=== PATIENT | female | born 1985 | race Caucasian/White ===

== ENCOUNTER 2017-02-06 09:17 | Day surgery (SDC) | payer BC ==
[2017-02-06 09:53] LABS: Hematocrit 36 % (35-47); Hemoglobin 11.9 g/dl (12.0-16.0); Mean Corpuscular HGB Conc 33 g/dl (31-36); Mean Corpuscular Hemoglobin 28 pg (27-31); Mean Corpuscular Volume 85 fL (80-97); Mean Platelet Volume 9 um3 (7.4-10.4); Red Blood Count 4.23 10^6/ul (4.0-5.4); Red Cell Distribution Width 13 % (10.5-15); White Blood Count 14.6 10^3/ul (3.5-10.8)
[2017-02-06 09:58] LABS: Urine Bacteria Absent (Absent); Urine Bilirubin Negative (Negative); Urine Glucose Negative (Negative); Urine Nitrite Negative (Negative)
[2017-02-06 10:13] LABS: ALT 26 U/L (7-52); AST 16 U/L (13-39); Albumin 3.7 g/dL (3.2-5.2); Alkaline Phosphatase 43 U/L (34-104); Anion Gap 6 mmol/L (2-11); BUN/Creatinine Ratio 13.3 (8-20); Blood Urea Nitrogen 10 mg/dL (6-24); CO2 Carbon Dioxide 26 mmol/L (22-32); Calcium 9.3 mg/dL (8.6-10.3); Chloride 104 mmol/L (101-111); EGFR African American 117.5 (>60); EGFR Non-African American 91.4 (>60); Globulin 3.4 g/dL (2-4); Glucose 98 mg/dL (70-100); Lipase 14 U/L (11.0-82.0); Potassium 3.7 mmol/L (3.5-5.0); Sodium 136 mmol/L (133-145); Total Protein 7.1 g/dL (6.4-8.9)
--- NOTE | 2017-02-06 10:22 | RAD ---
INDICATION: Right upper quadrant pain COMPARISON: None TECHNIQUE: Longitudinal and transverse scans of the right upper quadrant were obtained. Doppler interrogation of the hepatic and portal venous system was performed. FINDINGS: Liver: The liver is normal in size and echogenicity. There are no focal masses. The liver measures 17.9 cm in cephalocaudal dimension. Vessels: There is normal hepatic and portal venous flow. Bile ducts: There is no evidence of intrahepatic or extrahepatic ductal dilatation. The common duct measures 0.2 cm. Gallbladder: There are multiple gallstones. One gallstone may be in the neck. There is no evidence of cholelithiasis, thickening of the gallbladder wall, or pericholecystic fluid. Pancreas: The visualized pancreas appears normal Right kidney: The right kidney is normal in size and echogenicity. There are no masses or calculi. There is no evidence of hydronephrosis. The right kidney measures 11.6 x 4.4 x 7.3 cm. IVC and aorta: The aorta and superior vena cava appear normal. Fluid: There is no ascites. Other: None. IMPRESSION: CHOLELITHIASIS.
--- NOTE | 2017-02-06 10:52 | ED ---
Abdominal Pain/Female - HPI Summary HPI Summary: Pt here w/ RUQ ab pain which wraps around to her side and back on Rt last night 1-2 hours after eating. Denies fever, chills, N/V/D. Drank lots of water last night in an effort to flush out known gallstones. Pt reports she's had gallstones since her teens but never did anything about it. Pain subsided for 5- 6 years but then started to occur again, intermittently. Over the past 2 months , she's had increasing frequency, reporting "20 times in past 2 months...sometimes multiple times a week". She reports pain is not always linked with specific foods. Has not tried medication to break up stones, prevent occurrence as she admits to not following up with specialists as advised over the years. Has had associated constipation since "attack" - moved bowels this morning, but smaller than usual for her. Pain is currently 4/10 and she declines pain medication at this time. PMH/Surg hx: , 1 vaginal delivery, 1 - no complications Fam hx: Father w/ cholecystitis requiring open surgical removal d/t advanced state of disease - no h/o DM - History of Current Complaint Chief Complaint: EDAbdPain Stated Complaint: ABD PAIN Time Seen by Provider: 02/06/17 09:26 Hx Obtained From: Patient, Family/Hand Thermal Cutter - Pain Intensity: 4 Allergies/Adverse Reactions: Allergies Allergy/AdvReac Type Severity Reaction Status Date / Time No Known Allergies Allergy Verified 10/05/15 08:35 PMH/Surg Hx/FS Hx/Imm Hx Previously Healthy: Yes Endocrine/Hematology History: Denies: Hx Anticoagulant Therapy, Hx Blood Disorders, Hx Blood Transfusions, Hx Diabetes, Hx Anemia, Hx Unexplained Bleeding, Hx Coagulopothy, Autoimmune Disease Cardiovascular History: Denies: Hx Hypertension, Hx Myocardial Infarction Respiratory History: Denies: Hx Asthma GI History: Reports: Hx Gall Bladder Disease - cholelithiasis since teens, Hx Gastrointestinal Bleed - lower d/t polyps s/p colonosopy investigation - bleeding ceased s/p excisi Denies: Hx Gastroesophageal Reflux Disease History: Denies: Hx Kidney Infection, Hx Kidney Stones, Other Problems/Disorders - no known h/o ovarian or uterine pathology Musculoskeletal History: Denies: Hx Gout Sensory History: Reports: Hx Contacts or Glasses Opthamlomology History: Reports: Hx Contacts or Glasses - Surgical History Surgery Procedure, Year, and Place: Infectious Disease History: No Infectious Disease History: Denies: Hx Hepatitis, Hx Human Immunodeficiency Virus (HIV), Hx of Known/ Suspected MRSA, Traveled Outside the [place] in Last 30 Days - Family History Known Family History: Positive: Other - father gallbladder dz - Social History Occupation: Employed Full-time - [employer] Lives: With Family Alcohol Use: Occasionally Hx Substance Use: No Substance Use Type: Reports: None Hx Tobacco Use: No Smoking Status (MU): Never Smoked Tobacco Review of Systems Constitutional: Negative Negative: Fever, Chills, Fatigue Eyes: Negative ENT: Negative Cardiovascular: Negative Negative: Chest Pain Respiratory: Negative Negative: Shortness Of Breath Gastrointestinal: Other - see HPI Negative: burning, dysuria, discharge, frequency, flank pain Musculoskeletal: Negative Skin: Negative Neurological: Negative Negative: Headache Psychological: Normal All Other Systems Reviewed And Are Negative: Yes Physical Exam Triage Information Reviewed: Yes Vital Signs On Initial Exam: Initial Vitals Temp Pulse Resp BP Pulse Ox 98.6 F 72 16 119/69 99 02/06/17 09:18 02/06/17 09:18 02/06/17 09:18 02/06/17 09:18 02/06/17 09:18 Vital Signs Reviewed: Yes Appearance: Positive: Well-Appearing, No Pain Distress - at rest, Obese Skin: Positive: Warm, Dry - no ecchymosis Head/Face: Positive: Normal Head/Face Inspection Eyes: Positive: Normal, EOMI, Conjunctiva Clear - anicteric sclera ENT: Positive: Hearing grossly normal, Pharynx normal - mucosa moist and pink Neck: Positive: Supple, Nontender Respiratory/Lung Sounds: Positive: Clear to Auscultation, Breath Sounds Present. Negative: Rales, Rhonchi, Wheezes Cardiovascular: Positive: Normal, RRR, S1, S2. Negative: Murmur, Rub, Leg Edema Left, Leg Edema Right Abdomen Description: Positive: Soft, Other: - TTP over RUQ - no rebounding - all other areas of ab are NTTP. Negative: CVA Tenderness (R), CVA Tenderness (L ), Distended Bowel Sounds: Positive: Hypoactive Pelvic Exam: Positive: other - deferred - pt denies vaginal sx Musculoskeletal: Positive: Normal, Strength/ROM Intact Neurological: Positive: Normal, Sensory/Motor Intact, Alert, Oriented to Person Place, Time, CN Intact II-III Psychiatric: Positive: Normal - calm, pleasant Diagnostics - Vital Signs Vital Signs Temp Pulse Resp BP Pulse Ox 02/06/17 09:18 98.6 F 72 16 119/69 99 - Laboratory Lab Results: Lab Results 02/06/17 02/06/17 02/06/17 Range/Units 09:45 09:45 09:45 WBC 14.6 H (3.5-10.8) 10^3/ul RBC 4.23 (4.0-5.4) 10^6/ul Hgb 11.9 L (12.0-16.0) g/dl Hct 36 (35-47) % MCV 85 (80-97) fL MCH 28 (27-31) pg MCHC 33 (31-36) g/dl RDW 13 (10.5-15) % Plt Count 212 (150-450) 10^3/ul MPV 9 (7.4-10.4) um3 Neut % (Auto) 70.1 (38-83) % Lymph % (Auto) 23.1 L (25-47) % Flagler % (Auto) 6.0 (1-9) % Eos % (Auto) 0.5 (0-6) % Baso % (Auto) 0.3 (0-2) % Absolute Neuts (auto) 10.2 H (1.5-7.7) 10^3/ul Absolute Lymphs (auto) 3.4 (1.0-4.8) 10^3/ul Absolute Monos (auto) 0.9 H (0-0.8) 10^3/ul Absolute Eos (auto) 0.1 (0-0.6) 10^3/ul Absolute Basos (auto) 0 (0-0.2) 10^3/ul Absolute Nucleated RBC 0.01 10^3/ul Nucleated RBC % 0 Sodium 136 (133-145) mmol/L Potassium 3.7 (3.5-5.0) mmol/L Chloride 104 (101-111) mmol/L Carbon Dioxide 26 (22-32) mmol/L Anion Gap 6 (2-11) mmol/L BUN 10 (6-24) mg/dL Creatinine 0.75 (0.51-0.95) mg/dL Est GFR ( Amer) 117.5 (>60) Est GFR (Non-Af Amer) 91.4 (>60) BUN/Creatinine Ratio 13.3 (8-20) Glucose 98 (70-100) mg/dL Lactic Acid 1.3 (0.5-2.0) mmol/L Calcium 9.3 (8.6-10.3) mg/dL Total Bilirubin 0.70 (0.2-1.0) mg/dL AST 16 (13-39) U/L ALT 26 (7-52) U/L Alkaline Phosphatase 43 (34-104) U/L C-Reactive Protein 6.70 H (< 5.00) mg/L Total Protein 7.1 (6.4-8.9) g/dL Albumin 3.7 (3.2-5.2) g/dL Globulin 3.4 (2-4) g/dL Albumin/Globulin Ratio 1.1 (1-3) Lipase 14 (11.0-82.0) U/L Beta HCG, Quant < 0.60 mIU/mL Urine Color Urine Appearance Urine pH (5-9) Ur Specific Addison (1.010-1.030) Urine Protein (Negative) Urine Ketones (Negative) Urine Blood (Negative) Urine Nitrate (Negative) Urine Bilirubin (Negative) Urine Urobilinogen (Negative) Ur Leukocyte Esterase (Negative) Urine WBC (Auto) (Absent) Urine RBC (Auto) (Absent) Ur Squamous Epith Cells (Absent) Urine Bacteria (Absent) Urine Glucose (Negative) 02/06/17 Range/Units 09:45 WBC (3.5-10.8) 10^3/ul RBC (4.0-5.4) 10^6/ul Hgb (12.0-16.0) g/dl Hct (35-47) % MCV (80-97) fL MCH (27-31) pg MCHC (31-36) g/dl RDW (10.5-15) % Plt Count (150-450) 10^3/ul MPV (7.4-10.4) um3 Neut % (Auto) (38-83) % Lymph % (Auto) (25-47) % Flagler % (Auto) (1-9) % Eos % (Auto) (0-6) % Baso % (Auto) (0-2) % Absolute Neuts (auto) (1.5-7.7) 10^3/ul Absolute Lymphs (auto) (1.0-4.8) 10^3/ul Absolute Monos (auto) (0-0.8) 10^3/ul Absolute Eos (auto) (0-0.6) 10^3/ul Absolute Basos (auto) (0-0.2) 10^3/ul Absolute Nucleated RBC 10^3/ul Nucleated RBC % Sodium (133-145) mmol/L Potassium (3.5-5.0) mmol/L Chloride (101-111) mmol/L Carbon Dioxide (22-32) mmol/L Anion Gap (2-11) mmol/L BUN (6-24) mg/dL Creatinine (0.51-0.95) mg/dL Est GFR ( Amer) (>60) Est GFR (Non-Af Amer) (>60) BUN/Creatinine Ratio (8-20) Glucose (70-100) mg/dL Lactic Acid (0.5-2.0) mmol/L Calcium (8.6-10.3) mg/dL Total Bilirubin (0.2-1.0) mg/dL AST (13-39) U/L ALT (7-52) U/L Alkaline Phosphatase (34-104) U/L C-Reactive Protein (< 5.00) mg/L Total Protein (6.4-8.9) g/dL Albumin (3.2-5.2) g/dL Globulin (2-4) g/dL Albumin/Globulin Ratio (1-3) Lipase (11.0-82.0) U/L Beta HCG, Quant mIU/mL Urine Color Straw Urine Appearance Clear Urine pH 7.0 (5-9) Ur Specific Addison 1.003 L (1.010-1.030) Urine Protein Negative (Negative) Urine Ketones Negative (Negative) Urine Blood 3+ H (Negative) Urine Nitrate Negative (Negative) Urine Bilirubin Negative (Negative) Urine Urobilinogen Negative (Negative) Ur Leukocyte Esterase Negative (Negative) Urine WBC (Auto) Trace(0-5/hpf) (Absent) Urine RBC (Auto) 2+(6-10/hpf) H (Absent) Ur Squamous Epith Cells Present H (Absent) Urine Bacteria Absent (Absent) Urine Glucose Negative (Negative) Result Diagrams: 02/06/17 09:45 02/06/17 09:45 Lab Statement: Any lab studies that have been ordered have been reviewed, and results considered in the medical decision making process. Abdominal Pain Fem Course/Dx - Course Course Of Treatment: Pt presents w/ RUQ pain comparable to that she's had many times before with "gallbladder attacks". She has not followed up for care of this but is here today as "attacks" are more frequent over past 2 months and she 'd like to see what her options are. WBC 14.6, Ab neut 10.2, CRP 6.7. LFT's, electrolytes, lipase and lactic acid WNL. Urine blood +3, RBC + 2, Spec gravity 1.003, squamos cells present. Denies dysuria, frequency, flank pain, vaginal pain or discomfort - pt left ED before could inquire about mentrual cycle - if she's on it now, could be cause of findings in blood. Hcg serum (-) . No clinical cardiopulm risk factors. Also spec gravity being low correlates w/ pt reporting drinking H20 all night. Discussed w/ Dr. Schultz who evaluated pt. To be admitted for surgery today. - Diagnoses Provider Diagnoses: Cholelithiasis - Provider Notifications Discussed Care Of Patient With: Messi Schultz Discharge - Discharge Plan Condition: Stable Disposition: ADMITTED TO [facility] Referrals: Josee Lee MD [Primary Care Provider] -
--- NOTE | 2017-02-06 11:39 | HP ---
CC: Dr. Josee Lee DATE OF ADMISSION: 02/06/2017. The patient was seen in the emergency room. HISTORY OF PRESENT ILLNESS: I was contacted by the emergency room staff to evaluate Ms. Redmond, a 31-year-old, otherwise healthy female who presents to [facility] Emergency Room with complaints of acute onset of epigastric pain radiating to the back starting last night. The patient has now been reveal ed with narcotics. The patient describes having frequent bouts of what she says is biliary colic. She has been told she has had gallstones since her teenage years. She has been afraid to undergo ga llbladder surgery. She keeps a very busy schedule and raises two children. Her convinced er to come into the hospital. The patient describes previous symptoms of biliary colic starting approximately ten years ago; howev er, within the past eight months, they have become much more frequent, occurring almost on a weekly basis. The patient usually works through these. She describes loose bowel movements and denies any nausea or vomiting, no fevers or chills. She denies any anorexia and indeed has gained approximate ly ten pounds over the course of the last year. PAST MEDICAL HISTORY: None. PAST SURGICAL HISTORY: . MEDICATIONS: None. ALLERGIES: No known drug allergies. FAMILY HISTORY: Biliary disease and obesity in her father who recently underwent a laparoscopic con verted to open cholecystectomy while on vacation in [place], requiring approximately seven days of h ospitalization. No history of diabetes. No history of pancreatic or biliary cancers. SOCIAL HISTORY: She does not smoke or drink or use IV drugs. She is , lives with her two [facility] and her . 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 REVIEW OF SYSTEMS: No fevers, no chills, no headaches, no visual disturbances, no shortness of ricky th or chest pain. Abdominal complaints as described. No jaundice type symptoms. No dysuria or renan k colored urine. No light colored stools; loose bowel movements. The patient did undergo a colonos copy approximately a year ago with Dr. Pedro for bleeding and underwent Removal of a premalignant polyp and the bleeding stopped. The patient denies any other bleeding or clotting disorders. Weigh t gain as described above. No endocrine disorders. PHYSICAL EXAMINATION GENERAL: Alert and oriented times three, in no apparent distress. VITAL SIGNS: She is afebrile. Blood pressure 119/69, heart rate 72. HEENT: Normocephalic, atraumatic. Sclerae anicteric. Mucus membranes are moist. NECK: No lymphadenopathy. LUNGS: Clear to auscultation bilaterally. ABDOMEN: Soft, obese, minimally tender on deep palpation in the epigastrium. Negative Gutierrez sign. No CVA tenderness. No masses or hernias noted. EXTREMITIES: Within normal limits with no pitting edema or cyanosis. RECTAL: Exam not performed. LABORATORY DATA: The patient underwent labs which show a white count of 14.6 with no left shift. Hemoglobin is 11.9 which is low with reference range 12 to 16. Chemistry panel reviewed and shows mi ldly elevated CRP, but normal LFT's, including lipase level. The patient underwent a urinalysis whi ch showed blood, but no nitrates. The patient also has a negative beta HCG. The patient underwent an ultrasound of the gallbladder. Report states gallstones without common lyly e duct stone or dilatation. The common bile duct measures 0.2. There is no pericholecystic fluid, b ut there is a gallstone at the neck of the gallbladder. IMPRESSION: Cholecystitis in a patient with an elevated white count, gallbladder stone in the neck who I believe would benefit from laparoscopic cholecystectomy. I outlined the details of the proced ure, going over the risks, benefits and alternatives and the patient wishes to proceed. We spoke of the possible complications which include but were not limited to bleeding, infection, bile leak, co mmon bile duct injury or retained common bile stones, need for open procedure, need for additional p rocedures. The patient will receive preoperative antibiotics. PLAN: Same day surgery with planned discharge today. I outlined the possibility of staying overnig ht if needed. The patient is NPO. She will received IV fluids and catheter needs to be placed. He r questions were answered and consent was signed. [id number]/[facility] #: [id number]
[2017-02-06] MEDS ORDERED: Bupivacaine 0.25% SDV* 30 ML ONE ×2 (11:48→13:58)
[2017-02-06] MEDS ORDERED: Midazolam* 1 MG/ML 2 ML VIAL (2 MG) ONE (11:54)
[2017-02-06] MEDS ORDERED: fentaNYL* 50 MCG/ML 2 ML VIAL (100 MCG VIAL) ONE ×3 (11:54→14:34)
[2017-02-06] MEDS ORDERED: Buffered Lidocaine 0.9% SYRIN* 5 ML/SYR SYRINGE INTRADERM ONE (12:25)
[2017-02-06] MEDS ORDERED: DiMENhydriNATE IV* 50 MG/ML VIAL IV PUSH PRN (12:26)
[2017-02-06] MEDS ORDERED: PROCHLORPERAZINE INJ 5 MG/ML 2 ML VIAL IV PRN (12:26)
[2017-02-06] MEDS ORDERED: HYDROmorphone INJ* 1 MG/ML CARPUJECT SYRINGE IV PRN (12:26)
[2017-02-06] MEDS ORDERED: Acetaminophen TAB* 325 MG PO PRN (12:26)
[2017-02-06] MEDS ORDERED: Ondansetron INJ* 2 MG/ML VIAL IV PRN (12:26)
[2017-02-06] MEDS ORDERED: ceFAZolin 2 GM PREMIX (*) 50 ML IVPB ONE (12:41)
[2017-02-06] MEDS ORDERED: Cisatracurium* 2 MG/ML MDV 5 ML ONE (13:11)
[2017-02-06] MEDS ORDERED: Bacitracin OINTMENT* 1 TUBE ONE (14:09)
--- NOTE | 2017-02-06 14:13 | SURGPN ---
Brief Operative Note - Surgery Procedures: Pre-OP Diagnoses: acute cholecystitis Post-op Diagnosis: same Procedure: Laparoscopic cholecystectomy Surgeon: Antoine Asst: Denton Anethesia: DERRICK Palma EBL: minimal IVF: 1 L LR Specimen: gallbladder Drains: none
[2017-02-06] MEDS: fentaNYL* 50 MCG/ML 2 ML VIAL (100 MCG VIAL) IV PRN ×2 (14:36→14:48)
[2017-02-06] MEDS ORDERED: HYDROmorphone INJ* 1 MG/ML CARPUJECT SYRINGE ONE (14:49)
[2017-02-06 15:43] VITALS: BP 117/67
--- NOTE | 2017-02-07 09:47 | OP ---
CC: Dr. Josee Lee; [facility] OPERATIVE REPORT: DATE OF OPERATION: 02/06/17 DATE OF : 89 SURGEON: Messi Schultz MD. CARE SPECIALIST: RENA Ford. ANESTHESIOLOGIST: Dr. Palma. ANESTHESIA: General anesthesia. PRE-OP DIAGNOSIS: Acute cholecystitis. POST-OP DIAGNOSIS: Acute cholecystitis. OPERATIVE PROCEDURE: Laparoscopic cholecystectomy. ESTIMATED BLOOD LOSS: Minimal. FLUIDS: 1 L of crystalloid fluid given. SPECIMEN: Gallbladder. DRAINS: None. COUNTS: Lap pad count and instrument count correct at the end of the procedure. DESCRIPTION OF PROCEDURE: The patient was identified in the preoperative area, brought to the OR, p laced on the operating table in supine position. Preoperative antibiotics were given. Sequential c ompression device was placed on bilateral lower extremities. General anesthesia was induced. The p atient's abdomen was prepped and draped in standard surgical fashion and a time-out was performed. Folds of the umbilicus were elevated anteriorly and a Veress needle was attempted to place into the abdominal cavity. We were not able to appropriately insufflate and attention was then turned toward s right upper quadrant. An incision was made at Valverde's point 1 to 2 fingerbreadths below the cost al margin on the right just in the mid clavicular line. This was deepened down in the anterior fasc ia and Veress was easily placed into the abdominal cavity, which was then allowed to insufflate to a pressure of 15 mmHg. Patient tolerated the insufflation well. Veress needle was removed and a 5-mm trocar inserted. Laparoscope was inserted through this and there was no evidence of injury from th e initial attempted Veress needle. Additional trocars were then placed at the umbilicus site 5 mm a nd the omentum was lifted off. We can see some gas behind the omentum to suggest that air had enter ed into the abdominal cavity. We lifted off the omentum and with bowel graspers around the small jensen wel in that exact spot, no evidence of hematoma or blood or enteric contents at all. I feel comfort able that there was no injury intra-abdominally and camera was shifted to the umbilical port site an d additional trocars were then placed in the following position: A 12-mm in the subxiphoid area and a 5 mm along the right costal margin. Table was repositioned. Gallbladder was distended and injec elijah. This was grasped and retracted above the liver. It was somewhat tense, but we were able to re tract the infundibulum, which was large down towards to the right lower quadrant. This exposed the critical view, being able to clearly see the common bile duct. We did have to use sharp dissection and free some of the colon off of the side of the lateral aspect of the gallbladder. Around at this point, the fundus of the gallbladder perforated from the grasper. We were able to reposition our g rasper. Opaque drainage was identified consistent with pus. This was suctioned off and we minimize d the spillage. The peritoneum of the lateral aspect of the gallbladder was taken with electrocautery device. The m edial aspect was similarly taken. The cystic artery was identified after bluntly dissecting the nod e of Calot posteriorly. We then doubly clipped the artery and ligated this. This is allowed to see posterior in the gallbladder well. Dissection at this site with electrocautery was done and we cou ld make a window around the back of the side of the gallbladder. There was a large stone at the inf undibular neck portion of the gallbladder. This was not mobile but we could see a healthy cystic du ct that needed to be skeletonized, but once this was, we triply clipped and ligated it and removed t he gallbladder from the liver bed, placed in an endoscopic retrieval bag. Review of the cystic duct stump, cystic artery stump showed no bleeding or no bile leak. Copious ir rigated was used. Clearing out the area of the gallbladder fossa until the effluent was clear. The re was no bleeding and no bile. The tablet was repositioned to neutral. Gallbladder was then removed through the subxiphoid port si te. We did increase the size of this to allow for us to remove the gallbladder, which was passed of f as specimen. The wound was then irrigated and the fascial layer was reapproximated with 0 Polysor b suture in a figure-of- eight fashion. Again the wound irrigated and the umbilical incision reappr oximated with 3-0 chromic suture in a simple fashion and subcuticular 4-0 Monocryl sutures at the ot her 3 incisions. Sterile dressing was applied. The patient tolerated the procedure well, was awoke n in the OR and transferred to PACU in stable condition. [id number]/[facility] #: [id number]
== END 2017-02-06 15:40 | disposition home or self-care (01) ==
LOC: ED 09:17 → OR 11:58
PROVIDERS: ATTEND Surgery
DX: K80.12 Calculus of gallbladder with acute and chronic cholecystitis without obstruction (principal); Z87.891 Personal history of nicotine dependence
CPT/HCPCS: 36415; 76705; 80053; 81003; 81015; 83605; 83690; 84702; 85025; 86140; 88304; A9270-GY; J0690; J1170; J2250; J3010

== ENCOUNTER 2017-04-07 18:18 | Emergency (ER) | payer BC ==
--- NOTE | 2017-04-07 21:07 | ED ---
Lower Extremity - HPI Summary HPI Summary: 31F presents with lump behind left leg that notice today. She has history of DVT that got because was on control and had surgery. The revised her veins and removed the clot and placed her on lovenox for 7 days. She states that the pain is 3/10. feels like rope. denies any fever or spreading redness. denies any injury. no chest pain or SOB. has not been worked up for coagulopathy. no family history of blood clots. is not on ocp. no recent travel. did have gallbladder removed last month. - History of Current Complaint Chief Complaint: EDExtremityLower Stated Complaint: BUMP ON LT LEG Time Seen by Provider: 04/07/17 20:09 Pain Intensity: 3 - Allergies/Home Medications Allergies/Adverse Reactions: Allergies Allergy/AdvReac Type Severity Reaction Status Date / Time No Known Allergies Allergy Verified 10/05/15 08:35 PMH/Surg Hx/FS Hx/Imm Hx Endocrine/Hematology History: Denies: Hx Anticoagulant Therapy, Hx Blood Disorders, Hx Blood Transfusions, Hx Diabetes, Hx Anemia, Hx Unexplained Bleeding Cardiovascular History: Denies: Hx Hypertension, Hx Myocardial Infarction Respiratory History: Denies: Hx Asthma GI History: Reports: Hx Gall Bladder Disease - cholelithiasis since teens, Hx Gastrointestinal Bleed - lower d/t polyps s/p colonosopy investigation - bleeding ceased s/p excisi Denies: Hx Gastroesophageal Reflux Disease History: Denies: Hx Kidney Infection, Hx Kidney Stones, Other Problems/Disorders - no known h/o ovarian or uterine pathology Musculoskeletal History: Denies: Hx Gout Sensory History: Reports: Hx Contacts or Glasses Opthamlomology History: Reports: Hx Contacts or Glasses - Surgical History Surgery Procedure, Year, and Place: - Immunization History Immunizations Up to Date: Yes Infectious Disease History: No Infectious Disease History: Denies: Hx Hepatitis, Hx Human Immunodeficiency Virus (HIV), Hx of Known/ Suspected MRSA, Traveled Outside the [place] in Last 30 Days - Family History Known Family History: Positive: Other - father gallbladder dz - Social History Alcohol Use: Daily Alcohol Amount: 1 whiskey at night Hx Substance Use: No Substance Use Type: Reports: None Hx Tobacco Use: No Smoking Status (MU): Never Smoked Tobacco Review of Systems Negative: Fever Negative: Chest Pain Negative: Shortness Of Breath Positive: Edema - left leg All Other Systems Reviewed And Are Negative: Yes Physical Exam Triage Information Reviewed: Yes Vital Signs On Initial Exam: Initial Vitals Temp Pulse Resp BP Pulse Ox 98.7 F 82 18 133/74 100 04/07/17 18:35 04/07/17 18:35 04/07/17 18:35 04/07/17 18:35 04/07/17 18:35 Vital Signs Reviewed: Yes Appearance: Positive: Well-Appearing Skin: Positive: Warm, Dry Head/Face: Positive: Normal Head/Face Inspection Eyes: Positive: Normal, Conjunctiva Clear Respiratory/Lung Sounds: Positive: Clear to Auscultation, Breath Sounds Present Cardiovascular: Positive: Normal, RRR Musculoskeletal: Positive: Strength/ROM Intact - left leg, Other - small area of edema that feels rope like near left knee, good pulses. Negative: Brigido Sign Left Neurological: Positive: Normal Psychiatric: Positive: Normal - [place] Coma Scale Coma Scale Total: 15 Diagnostics - Vital Signs Vital Signs Temp Pulse Resp BP Pulse Ox 04/07/17 18:35 98.7 F 82 18 133/74 100 - Laboratory Lab Statement: Any lab studies that have been ordered have been reviewed, and results considered in the medical decision making process. - Ultrasound No standard instances Ultrasound Interpretation: Positive (See Comments) - IMPRESSION: 1. No sonographic evidence of deep vein thrombosis. 2. Partial thrombus in the great saphenous vein at the level of the popliteal fossa. Ultrasound Interpretation Completed By: Radiologist Lower Extremity Course/Dx - Course Course Of Treatment: 31F presents with lump behind left leg that notice today. She has history of DVT that got because was on control and had surgery. The revised her veins and removed the clot and placed her on lovenox for 7 days. She states that the pain is 3/10. feels like rope. denies any fever or spreading redness. denies any injury. no chest pain or SOB. has not been worked up for coagulopathy. no family history of blood clots. is not on ocp. no recent travel. did have gallbladder removed last month. on exam has area of swelling near left knee that feels rope like. no erythema. u/s shows parital thrombus at great saphenous vein. will not start blood thinners at this time as not in deep circulation. will have follow up with primary and can have discussion then and further evaluate risk factors. patient understand and agrees with plan. - Diagnoses Differential Diagnosis/HQI/PQRI: Positive: DVT, Phlebitis, Sprain Provider Diagnoses: Superficial thrombophlebitis Discharge - Discharge Plan Condition: Good Disposition: HOME Patient Education Materials: Superficial Thrombophlebitis (ED) Referrals: Josee Lee MD [Primary Care Provider] - Additional Instructions: Place heat on area Take Tylenol or ibuprofen for pain Wear compression socks Follow up with primary to get tested for coagulopathy, sometimes primary will place patient on blood thinners for phlebitis if have a lot of risk factors Return to ED if develop any new or worsening symptoms
--- NOTE | 2017-04-07 21:35 | RAD ---
HISTORY: Left lower extremity pain and swelling in a patient with a history of left lower extremity great saphenous vein stripping and ablation. TECHNIQUE: Multiple transverse and longitudinal ultrasound images were obtained of the veins of the left lower extremity using grayscale, color Doppler, and spectral Doppler imaging with and without compression and with augmentation. FINDINGS: VEINS: The common femoral vein, deep femoral vein, femoral vein and popliteal vein are compressible throughout their course, with normal flow on color Doppler imaging and normal response to augmentation on spectral Doppler imaging. In the left popliteal fossa there is partial thrombus in the great saphenous vein with a horizontally oriented retail wireless associate does not show any flow. SOFT TISSUES: Grossly normal. No large popliteal fossa cyst was identified. IMPRESSION: 1. No sonographic evidence of deep vein thrombosis. 2. Partial thrombus in the great saphenous vein at the level of the popliteal fossa.
[2017-04-07 21:42] VITALS: BP 105/54
== END 2017-04-07 21:44 | disposition home or self-care (01) ==
LOC: ED 18:18
DX: I80.02 Phlebitis and thrombophlebitis of superficial vessels of left lower extremity (principal)
CPT/HCPCS: 99281

== ENCOUNTER → 2018-06-30 08:41 | Day surgery (SDC) | payer BC ==
[~2018-06-30 08:41] MED LIST: Buffered Lidocaine 1% SYRIN* 1 ML/SYRINGE INTRADERM ONE; Dexamethasone TAB* 4 MG ONE; Dexamethasone TAB* 4 MG PO ONE; DiMENhydriNATE IV* 50 MG/ML VIAL IV PUSH PRN; Famotidine IV* 10 MG/ML 2 ML (20 mg) IV ONE; Famotidine IV* 10 MG/ML 2 ML (20 mg) ONE; Lactated Ringers 1000 ML Bag* 1,000 ML IV SCH; Lidocaine 2% PF * 5 ML VIAL ONE; Midazolam* 1 MG/ML 5 ML VIAL (5 MG) ONE; Naloxone* 0.4 MG/ML 1 ML VIAL IV PRN; Ondansetron INJ* 2 MG/ML VIAL ONE; Ondansetron ODT TAB* 4 MG ONE; Ondansetron TAB* 4 MG PO ONE; Propofol* 10 MG/ML 20 ML BTL ONE; ROPIVACAINE 5 MG/ML 30 ML BTL (0.5%) ONE; Succinylcholine* 20 MG/ML 10 ML VIAL ONE; fentaNYL* 50 MCG/ML 2 ML VIAL (100 MCG VIAL) ONE; oxyCODONE/Acetamin 5/325 MG* TAB ONE; oxyCODONE/Acetamin 5/325 MG* TAB PO PRN
[2018-06-30] MEDS: fentaNYL* 50 MCG/ML 2 ML VIAL (100 MCG VIAL) IV PRN ×2 (12:15→12:26)
[2018-06-30 12:56] VITALS: BP 106/54
--- NOTE | 2018-06-30 20:16 | OP ---
DATE OF OPERATION: 06/30/18 - SDS DATE OF : 89 SURGEON: Yair Jha MD PRE-OP DIAGNOSES: Chronic tonsillitis and a papillomatous growth on the left tonsil. POST-OP DIAGNOSES: Chronic tonsillitis and a papillomatous growth on the left tonsil. OPERATIVE PROCEDURE: Tonsillectomy under general endotracheal anesthesia. COMPLICATIONS: None. DISPOSITION: Good. SPECIMENS: Left and right tonsils. I also sent a biopsy of the left tonsillar mass. ESTIMATED BLOOD LOSS: Minimum. DESCRIPTION OF PROCEDURE: The patient was taken to the operating room and placed in the supine position on the operating table. General anesthesia was induced and she was orotracheally intubated, turned and draped for the surgery. Brissa-Tylor mouth gag was inserted, retraction was applied; it was suspended from the Hobson stand. Right tonsil was grasped, manual traction was applied. Using Bovie cautery, it was dissected along its capsule, removing it from the underlying pharyngeal musculature. On the superior pole of the left tonsil, there was a papillomatous growth. I took a scissor and snipped a piece off and sent that separately to Pathology. Left tonsil was grasped, manual traction was applied. Using Bovie cautery, it was dissected along its capsule, removing it from the underlying pharyngeal musculature. Hemostasis was ensured in both tonsillar fossa using the suction cautery. Brissa-Tylor mouth gag was released, retraction again applied and hemostasis was ensured. Orogastric tube was inserted into the stomach and stomach contents suctioned. Brissa-Tylor mouth gag and red rubber catheter were released and removed. The patient tolerated this well, no complications, was transferred to the recovery room in stable condition. [id number]/[facility] #: [id number] [facility]
== END | disposition home or self-care (01) ==
LOC: OR 08:41
PROVIDERS: ATTEND Otolaryngology
DX: J35.01 Chronic tonsillitis (principal); D10.4 Benign neoplasm of tonsil; R91.1 Solitary pulmonary nodule; Z87.891 Personal history of nicotine dependence
CPT/HCPCS: 81025; 88304; 88305; A9270-GY; J0330; J2250; J2405; J2704; J2795; J3010; J8540

== ENCOUNTER 2018-07-05 17:26 | Day surgery (SDC) | payer BC ==
[2018-07-05] MEDS ORDERED: Tranexamic Acid 1,000 MG/10 ML SDV TOPICAL ONE (17:34)
--- NOTE | 2018-07-05 17:47 | ED ---
Throat Pain/Nasal Congestion - HPI Summary HPI Summary: Pt is a 33 y/o female brought in by EMS who presents to the ED c/o pharyngeal bleeding. She had a tonsillectomy performed by Dr. Jha 5 days ago and has been taking Ibuprofen and Oxycodone for the pain. At 16:00 today she began to bleed from the surgical wound, and she is spitting up large clots of blood. Pt denies any pain to the area. She denies taking any blood thinners. Pt is a former smoker. - History of Current Complaint Hx Obtained From: Patient Onset/Duration: Sudden Onset, Lasting Hours - 16:00, Still Present Associated Signs And Symptoms: Positive: Negative Cough: None Related History: Prior ENT Surgery - tonsillectomy 5 days ago - Allergies/Home Medications Allergies/Adverse Reactions: Allergies Allergy/AdvReac Type Severity Reaction Status Date / Time No Known Allergies Allergy Verified 07/05/18 17:29 PMH/Surg Hx/FS Hx/Imm Hx Endocrine/Hematology History: Denies: Hx Anticoagulant Therapy, Hx Blood Disorders, Hx Blood Transfusions, Hx Diabetes, Hx Anemia, Hx Unexplained Bleeding Cardiovascular History: Reports: Other Cardiovascular Problems/Disorders - BLOOD CLOT TO THE LEFT AFTER VARICOSE VEIN SURGERY Denies: Hx Hypertension, Hx Myocardial Infarction, Hx Pacemaker/ICD Respiratory History: Reports: Other Respiratory Problems/Disorders - 2 SMALL NODULES ON LUNGS REPORTS PRESENT SINCE AGE 20- FOLLOWED BY PMD- Denies: Hx Asthma GI History: Reports: Hx Gall Bladder Disease - cholelithiasis since teens, Hx Gastrointestinal Bleed - lower d/t polyps s/p colonosopy investigation - bleeding ceased s/p excisi , Other GI Disorders - PRECANCEROUS POLYPS REMOVED 1- 2 YEARS AGO Denies: Hx Gastroesophageal Reflux Disease History: Reports: Other Problems/Disorders - H/O NEPHRITIS- POST STREP THROAT- REPORTS CLEARED WITH ANTIBIOTICS Denies: Hx Kidney Infection, Hx Kidney Stones Musculoskeletal History: Denies: Hx Gout Sensory History: Reports: Hx Contacts or Glasses - GLASSES Denies: Hx Hearing Aid Opthamlomology History: Reports: Hx Contacts or Glasses - GLASSES Neurological History: Reports: Hx Migraine - NOTED ONLY WHEN DEHYDRATED-OCULAR Psychiatric History: Reports: Hx Anxiety - VERY NERVOUS ABOUT UPCOMING PROCEDURE - Surgical History Surgery Procedure, Year, and Place: [id number]. 2018-GALLBLADDER REMOVED. VARICOSE VEIN - LEFT LEG- X 2- [facility]. TONSILLECTOMY 2019 Hx Anesthesia Reactions: No Infectious Disease History: No Infectious Disease History: Denies: Hx Hepatitis, Hx Human Immunodeficiency Virus (HIV), Hx of Known/ Suspected MRSA, Traveled Outside the US in Last 30 Days - Family History Known Family History: Positive: Other - father gallbladder dz - Social History Alcohol Use: None Alcohol Amount: 1 whiskey at night Hx Substance Use: No Substance Use Type: Reports: None Hx Tobacco Use: Yes Smoking Status (MU): Former Smoker Amount Used/How Often: 1/2 PPD X OFF AND ON 7 YEARS TOTAL Have You Smoked in the Last Year: No Review of Systems Negative: Fever Positive: Other - bleeding from tonsillectomy scar. Negative: Sore Throat All Other Systems Reviewed And Are Negative: Yes Physical Exam - Summary Physical Exam Summary: Appearance: Well appearing, no pain distress Skin: warm, dry, reflects adequate perfusion Head/face: normal Eyes: EOMI, MICHELLE ENT: mucous membranes moist, active bleeding and small clots on right tonsillar pillar, eschar is intact on the left Neck: supple, non-tender Respiratory: CTA, breath sounds present Cardiovascular: RRR, pulses symmetrical Abdomen: non-tender, soft Bowel Sounds: present Musculoskeletal: normal, strength/ROM intact Neuro: normal, sensory motor intact, A&Ox3 Triage Information Reviewed: Yes Vital Signs On Initial Exam: Initial Vitals Temp Pulse Resp BP Pulse Ox 98.7 F 100 17 126/79 100 07/05/18 17:29 07/05/18 17:29 07/05/18 17:29 07/05/18 17:29 07/05/18 17:29 Vital Signs Reviewed: Yes Diagnostics - Vital Signs Vital Signs Temp Pulse Resp BP Pulse Ox 07/05/18 17:29 98.7 F 100 17 126/79 100 - Laboratory Result Diagrams: 07/05/18 17:40 07/05/18 17:40 Lab Statement: Any lab studies that have been ordered have been reviewed, and results considered in the medical decision making process. Re-Evaluation - Re-Evaluation First Eval Re-Evaluation Time: 17:50 Change: Improved Comment: Bleeding has now stopped, and there is an intact clot. EENT Course/Dx - Course Course Of Treatment: Nurse's notes reviewed. Patient with post-tonsillectomy bleeding. She was given ice water gargles and follow this will by nebulized TXA. This stabilized a clot on the right tonsillar pillar. The ENT surgeon came in and will take to the OR for definitive care. - Diagnoses Provider Diagnoses: Post-tonsillectomy hemorrhage - Provider Notifications Discussed Care Of Patient With: Alek Jha Time Discussed With Above Provider: 17:00 Instructed by Provider To: Other - Dr. Jha informed us his pt was coming to the ED prior to her arrival. He will come to the ED. Dr. Jha arrived to the ED at 17:55 and is going to bring the pt to the OR. Discharge - Sign-Out/Discharge Documenting (check all that apply): Patient Departure - Admit Patient Received Moderate/Deep Sedation with Procedure: No - Discharge Plan Condition: Stable Disposition: ADMITTED TO [facility] - Billing Disposition and Condition Condition: STABLE Disposition: Admitted to [facility] - Attestation Statements Document Initiated by Jeremyibe: Yes Documenting Scribe: Aliya Walker Provider For Whom Deedee is Documenting (Include Credential): Benny Alcala MD Scribe Attestation: Aliya Black, scribed for Benny Alcala MD on 07/05/18 at 1835. Scribe Documentation Reviewed: Yes Provider Attestation: The documentation as recorded by the Aliya mcgarry accurately reflects the service I personally performed and the decisions made by Benny de la rosa MD Status of Scribe Document: Viewed
--- OUTSIDE RECORDS SUMMARY | 2018-07-05 17:52 | XMS REPORT | Continuity of Care Document ---
:1985 External Reference #:[id number] Author Name Alek Jha M.D. Address [address] [place] [address] Care Team Providers Name Role Phone Olesya Ramos N.P. Care Team Information Manager Mall Unavailable Wolf Monk M.D. Primary Care Physician Unavailable Payers Type Date Identification Numbers Payment Provider Subscriber Effective: Policy Number: [facility] Nena Redmond 2018 [id number] [facility] PayID: 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 [employer] Tobacco Use Start: Unknown End: Former Cigarette Smoker Unknown Tobacco Use Start: Unknown Never Smoked Cigars Tobacco Use Start: Unknown Never Smoked A Pipe Smokeless Tobacco Never Used Smokeless Tobacco ETOH Use Currently rarely consumes alcohol Tobacco Use Start: Unknown End: Patient is a former Unknown smoker Smoking Status Reviewed: 06/08/18 Patient is a former smoker Allergies, Adverse Reactions, Alerts Description No Known Drug Allergies Medications Medication Date Status Form Strength Qnty SIG Indications Ordering Provider Oxycodone HCL 06/08/ Active Solution 5mg/5ML 200ml 5 to 10 J03.01 Alek Ryan 2019 milliliters Abhijeet by Violet young every 4 hours as needed pain Vitamin D 00/00/ Active Capsules 500mg 1 tab daily Unknown 0000 00/00/ Active Tablets 1 tab daily Unknown 0000 Immunizations Description No Information Available Vital Signs Date Vital Result Comment 06/08/2018 3:50pm Weight 212.00 lb Weight 96.163 kg Height 66 inches 5'6" Height in cm's 167.6 cm BMI (Body Mass Index) 34.2 kg/m2 Results Description No Information Available Procedures Description No Information Available Encounters Type Date Location Provider Dx Diagnosis Office Visit 06/08/2018 Ruchi,After Alek Ryan J03.01 Acute recurrent 3:45p 05/18/07 Violet Jha streptococcal tonsillitis B97.7 Papillomavirus as the cause of diseases classified elsewhere 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 We reviewed the clinical guidelines to recommend tonsillectomy for recurrent tonsillitis in children and extrapolating to her as an adult and for this problem I recommend ~ B_tonsillectomy~b_. 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 There is a significant increase in the incidence of HPV mediated tonsil cancer. The strains that cause this infection tend not to do thatbut it needs to be removed. Given the size the best way to do this will be with tonsillectomy.We discussed the surgery and postoperative course. Postoperative symptoms include throat pain, phlegm, badbreath, fluctuating fevers and ear pain. One side of the throat may hurt more than the other. The back of the throat will turn white from scabs. This take several weeks to clear up. There may be a small amount of blood when drooling. Spitting out large quantities of bright red blood is abnormal andthe office should be called immediately for instructions or go directly to the emergency room. I explained that the major risks of surgery include, but are not limited to bleeding.B97.7 Papillomavirus as the cause of diseases classified uvopegiqzQ35.5 Benign neoplasm of other parts of oropharynx
[2018-07-05 18:01] LABS: ABS Basophils 0 10^3/ul (0-0.2); ABS Eosinophils 0.1 10^3/ul (0-0.6); ABS Lymphocytes 2.7 10^3/ul (1.0-4.8); ABS Monocytes 0.9 10^3/ul (0-0.8); ABS Neutrophils 11.5 10^3/ul (1.5-7.7); ABS Nucleated RBC 0 10^3/ul; Eosinophil % 0.8 %; Hematocrit 40 % (35-47); Lymphocyte % 17.4 %; Mean Corpuscular HGB Conc 33 g/dl (31-36); Mean Corpuscular Hemoglobin 28 pg (27-31); Mean Corpuscular Volume 86 fL (80-97); Nucleated Red Blood Cells % 0; Platelet Count 277 10^3/ul (150-450); Red Blood Count 4.59 10^6/ul (4.00-5.40); Red Cell Distribution Width 13 % (10.5-15); White Blood Count 15.3 10^3/ul (3.5-10.8)
[2018-07-05 18:18] LABS: BUN/Creatinine Ratio 12.9 (8-20); Calcium 9.5 mg/dL (8.6-10.3); EGFR African American 94.4 (>60); Potassium 3.6 mmol/L (3.5-5.0)
[2018-07-05] MEDS ORDERED: Midazolam* 1 MG/ML 5 ML VIAL (5 MG) ONE (18:23)
[2018-07-05] MEDS ORDERED: fentaNYL* 50 MCG/ML 2 ML VIAL (100 MCG VIAL) ONE ×2 (18:23→19:26)
--- NOTE | 2018-07-05 19:04 | CONS ---
CONSULTATION REPORT: DATE OF CONSULT: 07/05/18 HISTORY OF PRESENT ILLNESS: The patient is a 33-year-old postop day 5 from a tonsillectomy. She was doing well, but then midday today, started having hemorrhaging. She lives in [place], so I had the ambulance transport her to [facility]. She was treated by the ER doctor, Dr. Alcala, who did some TXA nebulization and she is not actively bleeding at this time, but has clot in the right tonsillar fossa. MEDICATIONS: 1. Tylenol. 2. Ibuprofen. 3. Oxycodone. ALLERGIES: No known drug allergies. PHYSICAL EXAMINATION: She has clot in the right tonsillar fossa, not actively bleeding, but with the severity of the bleeding in the distance, I feel it is safest to take her to the operating room for treatment. PLAN: Control of post tonsillectomy bleeding. [id number]/[facility] #: [id number] [facility]
[2018-07-05] MEDS ORDERED: Dexamethasone IV* 4 MG/ML 1 ML (4 MG) ONE (19:20)
[2018-07-05] MEDS ORDERED: DiMENhydriNATE IV* 50 MG/ML VIAL ONE (19:20)
[2018-07-05] MEDS ORDERED: Succinylcholine* 20 MG/ML 10 ML VIAL ONE (19:20)
[2018-07-05] MEDS ORDERED: Propofol* 10 MG/ML 20 ML BTL ONE (19:20)
[2018-07-05] MEDS ORDERED: Ondansetron INJ* 2 MG/ML VIAL ONE (19:20)
[2018-07-05] MEDS ORDERED: Naloxone* 0.4 MG/ML 1 ML VIAL IV PRN (19:26)
[2018-07-05] MEDS ORDERED: Acetaminophen TAB* 325 MG PO PRN (19:26)
[2018-07-05] MEDS: fentaNYL* 50 MCG/ML 2 ML VIAL (100 MCG VIAL) IV PRN ×2 (19:27→19:40)
[2018-07-05] MEDS ORDERED: Acetaminophen IV 1GM/100ML * 1,000 MG/100 ML VIAL IVPB ONE (19:29)
[2018-07-05 19:33] VITALS: BP 121/85
[2018-07-05] MEDS ORDERED: Acetaminophen IV 1GM/100ML * 100 ML ONE (19:37)
--- NOTE | 2018-07-05 23:30 | OP ---
DATE OF OPERATION: 07/05/18 - SDS DATE OF : 89 SURGEON: Yair Jha MD PRE-OP DIAGNOSIS: Postop tonsillectomy hemorrhage. POST-OP DIAGNOSIS: Postop tonsillectomy hemorrhage OPERATIVE PROCEDURE: Control of postop tonsillectomy hemorrhage under general endotracheal anesthesia. COMPLICATIONS: None. DISPOSITION: Good. SPECIMENS: About 10 mL intraoperatively. DESCRIPTION OF PROCEDURE: The patient was taken to the operating room and placed in the supine position on the operating table. General anesthesia was induced and she was orotracheally intubated and bright red blood was coming out of her mouth. Brissa-Tylor mouth gag was inserted, retraction was applied, it was suspended from the Hobson stand. A Yankauer was used to suction away the clot and she had a pumper from the right base of tongue. This was cauterized with the suction cautery as was some other oozing in this fossa. The left side had the typical postop eschar but looked normal. Brissa-Tylor mouth gags were released. Retraction was again applied. No active bleeding. Orogastric tube was inserted in stomach and stomach contents suctioned. Brissa-Tylor mouth gag was again released, retraction applied and no active bleeding. Brissa-Tylor mouth gag and red rubber catheter were released and removed. The patient tolerated this well, no complications, was transferred to the recovery room in stable condition. [id number]/[facility] #: [id number] [facility]
== END 2018-07-05 20:36 | disposition home or self-care (01) ==
LOC: ED 17:26 → OR 18:24
PROVIDERS: ATTEND Otolaryngology
DX: K91.840 Postprocedural hemorrhage of a digestive system organ or structure following a digestive system procedure (principal)
CPT/HCPCS: 36415; 80048; 85025; 99284; J0330; J1100; J1240; J2250; J2405; J2704; J3010